=== PATIENT | male | born 1980 | race Caucasian/White ===

== ENCOUNTER 2024-08-02 12:09 | Emergency (ER) | payer OTHER, SELFPAY ==
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
[2024-08-02 12:21] VITALS: BP 128/80; BP 153/94; PULSE 106; PULSE 86; RESP 16; TEMP 36.6; O2SAT 98; BMI 27.5
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
[2024-08-02 14:35] VITALS: BP 132/85; PULSE 64; RESP 16; TEMP 36.6; O2SAT 100
[2024-08-02] MEDS: Naloxone HCl Nasal TAKE HOME 4 MG SPRAY 8 MG NOSTRILALT (14:51)
[2024-08-02 14:54] VITALS: BP 132/85; PULSE 64; RESP 16; TEMP 36.6; O2SAT 100
== END 2024-08-02 14:55 | disposition home or self-care (01) ==
PROVIDERS: Emergency Provider Emergency Medicine
DX: T40.601A Poisoning by unspecified narcotics, accidental (unintentional), initial encounter (principal); Y92.9 Unspecified place or not applicable
CPT/HCPCS: 99284